=== PATIENT | female | born 1945 | race Caucasian/White ===

== ENCOUNTER 2022-05-29 06:32 | Day surgery (SDC) | payer OTHER ==
[2022-05-27 11:56] LABS: SARS-CoV-2 Antigen Rapid Res Negative (Negative)
[2022-05-29] MEDS ORDERED: Ringers Lactate 1,000 ML IV ONE (06:57)
[2022-05-29] MEDS ORDERED: LIDOCAINE 1% MPF 5 ML VIAL ONE (07:30)
[2022-05-29] MEDS ORDERED: propofoL 200 MG/20 ML VIAL IV ONE (07:30)
[2022-05-29] MEDS ORDERED: Phenylephrine HCl 10 MG/ML 1 ML VIAL ONE (07:34)
[2022-05-29] MEDS ORDERED: GLYCOPYRROLATE 0.2 MG/ML SYR ONE (07:34)
[2022-05-29] MEDS ORDERED: LIDOCAINE VISCOUS 2% SOLN 15 ML UDC ONE (07:35)
[2022-05-29] MEDS ORDERED: LIDOCAINE 4% TOP SOLUTION ONE (07:35)
[2022-05-29] MEDS ORDERED: LIDOCAINE 1% 20 ML MDV ONE (07:49)
[2022-05-29] MEDS ORDERED: LIDOCAINE 1% MPF 30 ML VIAL IJ ONE (08:10)
--- NOTE | 2022-05-29 08:22 | P.OP ---
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
--- NOTE | 2022-05-29 08:44 | RAD REPORT ---
EXAM DESCRIPTION: RAD - Fluoroscopy <1 Hour - 05/29/2022 8:32 am CLINICAL HISTORY: BRONCH COMPARISON: No comparisons FINDINGS: Fluoroscopy time: 1 minutes 29 seconds
[2022-05-29 09:53] VITALS: TEMP 97.6
--- NOTE | 2022-05-29 10:02 | RAD REPORT ---
EXAM DESCRIPTION: RAD - Chest Single View - 05/29/2022 9:42 am CLINICAL HISTORY: R/O PNEUMOTHORAX Chest pain. COMPARISON: Fluoroscopy <1 Hour dated 05/29/2022 FINDINGS: Portable technique limits examination quality. Moderate airspace opacification of the right lower lobe is present. No postprocedure pneumothorax alvin ntified.
[2022-05-29 10:49] VITALS: BP 108/55; O2SAT 96
== END 2022-05-29 10:43 | disposition home or self-care (01) ==
LOC: OR 06:32
PROVIDERS: ATTEND Internal Medicine Sleep Medicine
PROC: 0BDF8ZX Extraction of Right Lower Lung Lobe, Via Natural or Artificial Opening Endoscopic, Diagnostic (ICD-10-PCS; principal; 2022-05-29 08:00)
DX: C34.31 Malignant neoplasm of lower lobe, right bronchus or lung (principal); J94.9 Pleural condition, unspecified; J44.9 Chronic obstructive pulmonary disease, unspecified; Z20.822 Contact with and (suspected) exposure to COVID-19; I10 Essential (primary) hypertension; I48.91 Unspecified atrial fibrillation
CPT/HCPCS: 31623; 36415; 88108 ×2; 88305 ×2; 71045; 87811; J2704; J2370; J7120; 76000

== ENCOUNTER 2024-10-12 07:16 | Day surgery (SDC) | payer OTHER ==
[2024-10-12] MEDS ORDERED: propofoL 200 MG/20 ML VIAL IV ONE (07:48)
[2024-10-12] MEDS: Ringers Lactate 1,000 ML IV ONE (08:00)
[2024-10-12 08:14] VITALS: O2SAT 100
[2024-10-12 09:17] VITALS: TEMP 97.6
[2024-10-12] MEDS ORDERED: LIDOCAINE 1% MPF 5 ML VIAL ONE (09:41)
[2024-10-12 09:52] VITALS: BP 124/76
== END 2024-10-12 09:41 | disposition home or self-care (01) ==
LOC: OR 07:16
PROVIDERS: ATTEND Internal Medicine Gastroenterology
PROC: 0DB68ZX Excision of Stomach, Via Natural or Artificial Opening Endoscopic, Diagnostic (ICD-10-PCS; 2024-10-12)
PROC: 0DB38ZX Excision of Lower Esophagus, Via Natural or Artificial Opening Endoscopic, Diagnostic (ICD-10-PCS; principal; 2024-10-12 08:30)
DX: K21.9 Gastro-esophageal reflux disease without esophagitis (principal); K29.50 Unspecified chronic gastritis without bleeding; K22.9 Disease of esophagus, unspecified; K29.80 Duodenitis without bleeding; I10 Essential (primary) hypertension; Z85.118 Personal history of other malignant neoplasm of bronchus and lung
CPT/HCPCS: 88312; 88313; 88305; 43239; J2704; J2003; J7120